=== PATIENT | female | born 1990 | race American Indian/Alaskan Native ===

== ENCOUNTER 2018-04-19 16:40 | Emergency (ER) | payer MEDICAID ==
[2018-04-19 16:46] VITALS: BMI 34.2
[2018-04-19 16:49] VITALS: RESP 18
[2018-04-19] MEDS ORDERED: Sodium Chloride 0.9% 1,000 ML IV STA (17:12)
--- NOTE | 2018-04-19 17:15 | ED PDOC ---
Arrival/HPI - General Chief Complaint: Headache Time Seen by Provider: 04/19/18 17:09 - History of Present Illness Narrative History of Present Illness (Text): 28 y/o F c PMHx migraine p/w headache x 1 hour. Headache is bilateral, throbbing , associated with blurry vision, photophobia, nausea, which she states she has had before with her migraines. Denies fever, stiff neck, trauma, vomiting, limb weakness or numbness. Past Medical History - Infectious Disease Hx of Infectious Diseases: None - Cardiac Hx Cardiac Disorders: No - Pulmonary Hx Respiratory Disorders: No - Neurological Hx Neurological Disorder: Yes Hx Headaches: Yes Hx Migraine: Yes - HEENT Hx HEENT Disorder: No - Renal Hx Renal Disorder: No - Endocrine/Metabolic Hx Endocrine Disorders: No - Hematological/Oncological Hx Blood Disorders: No - Integumentary Hx Dermatological Disorder: No - Musculoskeletal/Rheumatological Hx Musculoskeletal Disorders: No - Gastrointestinal Hx Gastrointestinal Disorders: No - Genitourinary/Gynecological Hx Genitourinary Disorders: No - Psychiatric Hx Psychophysiologic Disorder: Yes Hx Anxiety: Yes Hx Substance Use: No - Surgical History Hx Section: Yes (2) Family/Social History Family/Social History: No Known Family HX Smoking Status: Never Smoked Hx Alcohol Use: No Hx Substance Use: No Allergies/Home Meds Allergies/Adverse Reactions: Allergies No Known Allergies Allergy (Verified 04/19/18 16:46) Home Medications: Home Meds Medication Instructions Recorded Confirmed LORazepam [Ativan] 0.5 mg PO DAILY 04/19/18 04/19/18 Review of Systems - Physician Review All systems were reviewed & negative as marked: Yes - Review of Systems Constitutional: absent: Fevers Cardiovascular: absent: Chest Pain Physical Exam - Physical Exam Narrative Physical Exam (Text): Gen: NAD head: NC/AT Eyes: PERRL. EOMI ENT: MMM Neck: No rigidity Chest: No tenderness CV: Regular rate Lungs: CTA B/l Abd: Soft Back: No CVA tenderness Skin: No rash Neuro: Alert, no focal deficit, no facial droop, motor 5/5 x 4, sensation to light touch intact, gait normal. Extremities: No edema Vital Signs Temp Pulse Resp BP Pulse Ox 04/19/18 18:40 98 F 80 18 106/64 97 04/19/18 16:47 98.4 F 85 18 113/77 99 Medical Decision Making ED Course and Treatment: Patient feels much better after treatment, all symptoms resolved. Discharged, f/ u PMD, return to ED for worsening pain, fever, neck stiffness, or any other problem. - Lab Interpretations Lab Results: 04/19/18 17:25 04/19/18 17:25 Lab Results 04/19/18 17:25: Sodium 143, Potassium 4.6, Chloride 106, Carbon Dioxide 24, Anion Gap 18, BUN 16, Creatinine 0.8, Est GFR ( Amer) > 60, Est GFR (Non- Af Amer) > 60, Random Glucose 89, Calcium 9.8, Total Bilirubin 0.4, AST 31, ALT 22, Alkaline Phosphatase 53, Total Protein 7.9, Albumin 4.4, Globulin 3.5, Albumin/Globulin Ratio 1.3 04/19/18 17:25: WBC 4.9, RBC 4.62, Hgb 13.4, Hct 39.1, MCV 84.6, MCH 29.0, MCHC 34.3, RDW 12.5, Plt Count 310, MPV 9.1, Gran % 32.2 L, Lymph % (Auto) 55.7 H, Motley % (Auto) 9.3 H, Eos % (Auto) 2.6, Baso % (Auto) 0.2, Gran # 1.59, Lymph # ( Auto) 2.8, Motley # (Auto) 0.5, Eos # (Auto) 0.1, Baso # (Auto) 0.01 04/19/18 17:25: Urine HCG, Qual Negative - Medication Orders Current Medication Orders: Discontinued Medications Acetaminophen (Tylenol 325mg Tab) 975 mg PO STAT STA Stop: 04/19/18 17:13 Last Admin: 04/19/18 17:36 Dose: 975 mg MAR Pain/Vitals Document 04/19/18 17:36 SRE (Rec: 04/19/18 17:36 SRE [id number]) Pain Reassessment Is This A Pain ReAssessment? Yes Sleep Is patient sleeping during reassessment? No Presence of Pain Presence of Pain Yes Pain Scale Used Pain Scale Used Numeric Location Pain Location [facility] Administrator Description Constant Scale Used Numeric Sodium Chloride (Sodium Chloride 0.9%) 1,000 mls @ 999 mls/hr IV .Q1H1M STA Stop: 04/19/18 18:12 Last Admin: 04/19/18 17:32 Dose: 999 mls/hr eMAR Start Stop Document 04/19/18 17:32 SRE (Rec: 04/19/18 17:34 SRE [id number]) Intravenous Solution Start Date 04/19/18 Start Time 17:30 End Date 04/19/18 End time 18:30 Total Infusion Time 60 Ketorolac Tromethamine (Toradol) 15 mg IVP STAT STA Stop: 04/19/18 17:13 Last Admin: 04/19/18 17:34 Dose: 15 mg MAR Pain Assessment Document 04/19/18 17:34 SRE (Rec: 04/19/18 17:35 SRE [id number]) Pain Reassessment Is this a pain reassessment? Yes Sleep Is patient sleeping during reassessment? No Presence of Pain Presence of Pain Yes Pain Scale Used Pain Scale Used Numeric Location Pain Location [facility] Administrator Description Description Constant IVP Administration Document 04/19/18 17:34 SRE (Rec: 04/19/18 17:35 SRE [id number]) Charges for Administration # of IVP Administrations 1 Metoclopramide HCl (Reglan) 10 mg IVP STAT STA Stop: 04/19/18 17:13 Last Admin: 04/19/18 17:35 Dose: 10 mg IVP Administration Document 04/19/18 17:35 SRE (Rec: 04/19/18 17:35 SRE [id number]) Charges for Administration # of IVP Administrations 1 Disposition/Present on Arrival - Present on Arrival Any Indicators Present on Arrival: No History of DVT/PE: No History of Uncontrolled Diabetes: No Urinary Catheter: No History of Decub. Ulcer: No History Surgical Site Infection Following: None - Disposition Have Diagnosis and Disposition been Completed?: Yes Diagnosis: Headache Disposition: HOME/ ROUTINE Disposition Time: 18:45 Patient Plan: Discharge Condition: STABLE Discharge Instructions (ExitCare): Migraine Headache (DC) Prescriptions: Acetaminophen [Tylenol 325mg tab] 2 tab PO Q4H #30 tab Ibuprofen [Motrin] 600 mg PO Q6 #25 tab Metoclopramide HCl [Reglan] 5 mg PO Q8H #5 tab Referrals: Terence Dobson MD [Primary Care Provider] - Follow up with primary Forms: studentSN (Spanish)
[2018-04-19 17:45] LABS: BASO # 0.01 K/mm3 (0.0-2.0); BASO % 0.2 % (0.0-3.0); EOS # 0.1 (0.0-0.7); EOS % 2.6 % (1.5-5.0); GRAN # 1.59 (1.4-6.5); GRAN % 32.2 % (50.0-68.0); HEMOGLOBIN 13.4 g/dL (12.0-16.0); LYMPH # 2.8 (1.2-3.4); LYMPH % 55.7 % (22.0-35.0); MEAN CELL VOLUME 84.6 fl (80.0-105.0); MEAN CORPUSCULAR HGB CONC 34.3 g/dl (31.0-37.0); MEAN PLATELET VOLUME 9.1 fl (7.0-11.0); MONO # 0.5 (0.1-0.6); MONO % 9.3 % (1.0-6.0); RBC 4.62 10^6/uL (3.5-6.1); RED CELL DISTRIBUTION WIDTH 12.5 % (11.5-14.5); WHITE BLOOD COUNT 4.9 10^3/ul (4.5-11.0)
[2018-04-19 18:00] LABS: ALB/GLOB RATIO 1.3 (1.1-1.8); ALBUMIN 4.4 g/dL (3.0-4.8); ALT/SGPT 22 U/L (7-56); AST/SGOT 31 U/L (14-36); BLOOD UREA NITROGEN 16 mg/dL (7-21); CALCIUM 9.8 mg/dL (8.4-10.5); GFR AFRICAN-AMERICAN > 60; GFR NON-AFRICAN AMERICAN > 60
[2018-04-19 18:44] VITALS: BP 106/64; PULSE 80; TEMP 98; O2SAT 97
== END 2018-04-19 19:00 | disposition home or self-care (01) ==
LOC: MERGE 16:40 → ED 16:40
DX: R51 Headache (principal)
CPT/HCPCS: 80053; 84703; 85025; 96361; 96374; 96375; 99285; J1885; J2765; J7030